=== PATIENT | female | born 1950 | race Caucasian/White ===

== ENCOUNTER 2017-12-24 08:44 | Emergency (ER) | payer MEDICARE ==
[~2017-12-24] VITALS: Ht 167.6 cm; Wt 79.0 kg
[2017-12-24 09:31] LABS: MICROSCOPIC INDICATED
[2017-12-24] MEDS ORDERED: IBUPROFEN 200 MG TABLET ONE (10:25)
[2017-12-24] MEDS ORDERED: IBUPROFEN 200 MG TABLET PO ONE (10:30)
[2017-12-24 11:16] VITALS: BP 129/79
== END 2017-12-24 11:47 | disposition home or self-care (01) ==
LOC: ED 11:30
DX: N13.2 Hydronephrosis with renal and ureteral calculous obstruction (principal)
CPT/HCPCS: 74176; 81001; 99285